=== PATIENT | male | born 1945 | race Caucasian/White ===

== ENCOUNTER 2016-10-02 09:30 | Observation (INO) | payer MEDICARE, OTHER ==
--- NOTE | ~2016-10-02 | DS ---
Discharge Summary [facility] [address] [place]. [address] NAME: MEÑO CARO : 41 STATUS : DIS Gabbi PAT#: [id number] AGE: 71 ADM/REG DATE : 10/02/16 MR#: [id number] REPORT SERV DATE: 10/04/16 DICTATED BY: SEBAS VERMA DATE: 10/03/16 REPORT STATUS : Draft TRANSCRIBED BY: MODL DATE: 10/03/16 ADMISSION DATE: 10/02/2016 DISCHARGE DATE: 10/03/2016 OBSERVATION DISCHARGE Date of observation 10/02/2016 initiated at [facility]. Date of discharge 10/03/2016 from [facility]. DISCHARGE DIAGNOSES: 1. Roz-BK-ubbeqcu elevation myocardial infarction. 2. Diffuse moderate coronary artery disease, status post successful drug-eluting stent implantation to severe mid RCA stenosis. 3. Type 2 diabetes, on multi-drug regimen. 4. Hypertension. 5. Hyperlipidemia. 6. Sleep apnea. 7. Chronic kidney disease 3. 8. Elevated TSH with normal free T4. 9. Low alkaline phosphatase. 10.Benign prostatic hyperplasia, post TURP, 06/2015. 11.History of colon polyps with colonoscopy, 04/2010 and 04/2015. 12.History of basal cell carcinoma and squamous cell carcinoma, skin cancers. 13.Mild diastolic dysfunction by echocardiography. OPERATION AND PROCEDURES: Coronary arteriography and RCA drug-eluting stent implantation 10/02/2016, Dr. Small. PRESENT ILLNESS: This is a 71-year-old white male who was admitted to [facility] observation status with chest pain on 10/02/[address] Jamal Godinez as outlined on admission history and physical examination. ADDITIONAL HISTORY: Per Dr. Godinez. PHYSICAL EXAMINATION: Per Dr. Godinez. ADMISSION LABORATORY: Per Dr. Godinez. HOSPITAL COURSE: At [facility], he was admitted as described. His initial troponin was 0.06. Cardiology consultation was obtained. He was seen by Dr. Espinoza. A repeat troponin was 0.2. Dr. Espinoza felt that he had a qra-KJ-sndnpdy elevation myocardial infarction and recommended transfer to [facility] for cardiac catheterization. This was done. He was taken to the cemetery laborer by Dr. Small on 10/02/2016 with findings of hazy severe mid RCA stenosis treated successfully with MK stent implantation. Discharge Summary [facility] [address] [place]. [address] NAME: MEÑO CARO : 41 STATUS : DIS Gabbi PAT#: [id number] AGE: 71 ADM/REG DATE : 10/02/16 MR#: [id number] REPORT SERV DATE: 10/04/16 DICTATED BY: SEBAS VERMA DATE: 10/03/16 REPORT STATUS : Draft TRANSCRIBED BY: MODTulio DATE: 10/03/16 Moderate proximal and distal RCA stenosis. Moderate to severe proximal circumflex and mid first diagonal stenosis. LVEDP of 25. Dr. Small's recommendations were dual anti-platelet therapy for at least one year. Aggressive medical management and risk factor modification. Consider noninvasive testing or stage evaluation of proximal circumflex and first diagonal stenosis should symptoms persist. He was seen by the undersigned on 10/02/2016 at 1609 hours post cath, and this morning 10/03/2016 at 1038 hours. He has no new symptoms. His right radial artery intervention site is intact with a strong pulse. His lungs are clear. He is in sinus rhythm. He has been released by Cardiology for office followup. Discharge BMP: Sodium 142, potassium 4.2, chloride 108, CO2 of 27, BUN 20, creatinine 1.5, glucose 99, calcium 8.6. CBC: White count 6.2, hemoglobin 13.6, and platelets of 195,000. He is to follow up with Dr. Small next week. He should have a BMP next week. Additional followup will be with his phlebotomy instructor, Dr. Cuba; flatwork assembler, Dr. López; and primary care insurance billing clerk, Dr. Perez. His discharge medications pending outpatient followup next week will be amlodipine 10 mg daily, aspirin 81 mg daily, Lipitor 80 mg daily, vitamin D 2000 units daily, glimepiride 1 mg with breakfast and 1 mg with supper and additional 1 mg with breakfast for blood sugar greater than 150. He will restart metformin 1000 mg twice daily on Thursday. He will begin Effient 10 mg daily. He will hold his Diovan until office followup next week with a BMP. He will continue Victoza 1.8 mg subcu daily and Zyrtec 10 mg as needed. He will begin Coreg 3.125 mg twice daily. He will continue B12 1000 mcg IM monthly. He had been on Depo- Testosterone. I have asked him to hold this and check with Cardiology as to whether it should be continued at this time because of potential thrombotic risk. He will no longer use pravastatin. He will hold fenofibrate until Cardiology followup with recommendations now that he is on high-dose statin. DD/MODL Sebas Verma M.D. / [id number] Discharge Summary [address] [place]. [address] NAME: MEÑO CARO : 41 STATUS : DIS Gabbi PAT#: [id number] AGE: 71 ADM/REG DATE : 10/02/16 MR#: [id number] REPORT SERV DATE: 10/04/16 DICTATED BY: SEBAS VERMA DATE: 10/03/16 REPORT STATUS : Draft TRANSCRIBED BY: ALFREDO DATE: 10/03/16 CC: Prasanth Galicia M.D. Andrew H Fowler, M.D. Christopher Poole, M.D. Paul Hoffman, M.D. DO Katalina Aleman Jr., M.D.
[~2016-10-02 09:30] MED LIST: AMARYL1 MG PO; ASAB PO; BYETTA10 SC; DEPO-TESTOS100 MG/M1; DEPO-TESTOS100 MG/ML; DIOV160 PO; GLUCPH PO; LISINOPRIL40 MG PO; LOFIB160 PO; METHOC750B PO; NORV25 PO; PCET PO; PRAVACHOL40 MG PO; VICTOZA18 MG/3 ML SC; VITAMIN D1000 UNI1 PO; ZYRTEC ALLGY10 MG PO
[2016-10-03 04:10] LABS: HEMATOCRIT 39.9 % (40.0-51.0); HEMOGLOBIN 13.6 g/dL (13.6-17.8)
[2016-10-03 04:33] LABS: BUN (BLOOD UREA NITROGEN) 20 MG/DL (6-23); CALCIUM, SERUM 8.6 MG/DL (8.5-10.4); CHLORIDE, SERUM 108 MMOL/L (96-112); CO2 (CARBON DIOXIDE) 27 MMOL/L (24-34); GFR AFRICAN AMERICAN 53 ML/MIN (>=60); GFR NON AFRICAN AMERICAN 46 ML/MIN (>=60); GLUCOSE, SERUM 99 MG/DL (60-99); POTASSIUM, SERUM 4.2 MMOL/L (3.5-5.3); SODIUM, SERUM 142 MMOL/L (135-148)
[2016-10-03] MEDS ORDERED: GLYNASE1.5 PO (12:19)
[2016-10-03] MEDS ORDERED: EFFIENT10 PO (12:19)
[2016-10-03] MEDS ORDERED: COREG3 PO (12:20)
[2016-10-03] MEDS ORDERED: LIPITOR80 MG PO (12:20)
[2016-10-03] MEDS ORDERED: NITROSTAT0.4 MG SL (12:21)
[2016-10-03] MEDS ORDERED: NORV10 PO (12:24)
[2016-10-03] MEDS ORDERED: VIT B12 IM (12:29)
[2016-10-03] MEDS ORDERED: AMARYL1 MG PO (13:04)
== END 2016-10-03 13:45 | disposition home or self-care (01) ==
LOC: CORLMH 09:30 → SSU1 11:20
PROVIDERS: Internal Medicine Cardiovascular Disease
PROC: 4A023N7 Measurement of Cardiac Sampling and Pressure, Left Heart, Percutaneous Approach (ICD-10-PCS; principal; 2016-10-02)
PROC: B2111ZZ Fluoroscopy of Multiple Coronary Arteries using Low Osmolar Contrast (ICD-10-PCS; 2016-10-02)
PROC: 027034Z Dilation of Coronary Artery, One Artery with Drug-eluting Intraluminal Device, Percutaneous Approach (ICD-10-PCS; 2016-10-02)
DX: I25.119 Atherosclerotic heart disease of native coronary artery with unspecified angina pectoris (principal); I21.4 Non-ST elevation (NSTEMI) myocardial infarction; I12.9 Hypertensive chronic kidney disease with stage 1 through stage 4 chronic kidney disease, or unspecified chronic kidney disease; E11.22 Type 2 diabetes mellitus with diabetic chronic kidney disease; N18.3 Chronic kidney disease, stage 3 (moderate); E78.00 Pure hypercholesterolemia, unspecified; E78.2 Mixed hyperlipidemia; G47.30 Sleep apnea, unspecified; Z90.79 Acquired absence of other genital organ(s); Z82.49 Family history of ischemic heart disease and other diseases of the circulatory system; Z86.010 Personal history of colon polyps; Z85.828 Personal history of other malignant neoplasm of skin; Z79.82 Long term (current) use of aspirin; Z79.84 Long term (current) use of oral hypoglycemic drugs; Z79.899 Other long term (current) drug therapy
CPT/HCPCS: 80048; 82962; 85014; 85018; 93005; 93458; 99152; 99153; A9270-GY; C1725; C1769; C1874; C1887; C1894; C8929; C9600; G0378; J0583; J2250; J3010; Q9957; Q9967